=== PATIENT | female | born 1970 | race Hispanic/Latino ===

== ENCOUNTER 2018-02-21 11:41 | Observation (INO) | payer OTHER ==
[2018-02-21] VITALS (15 sets, daily range): BP systolic 128–150; BP diastolic 71–84
[2018-02-21 12:22] LABS: APPEARANCE,URINE Cloudy (CLEAR); BILIRUBIN,URINE Small (NEGATIVE); COLOR,URINE Dark Yellow (YELLOW); GLUCOSE, URINE (UA) Negative (NEGATIVE); KETONES,URINE 15 mg/dL (NEGATIVE); LEUKOCYTE ESTERASE ,URINE Small (NEGATIVE); NITRATE,URINE Negative (NEGATIVE); OCCULT BLOOD,URINE Negative (NEGATIVE); PH,URINE 5.5 (5.0-8.0); PROTEIN,URINE Trace (NEGATIVE)
[2018-02-21 12:23] LABS: CREATININE 0.7 mg/dL (0.5-1.5); POTASSIUM 3.6 mmol/L (3.5-5.1)
[2018-02-21] MEDS ORDERED: ONDANSETRON HCL 4 MG/2 ML VIAL ONE ×2 (12:31→15:19)
[2018-02-21] MEDS ORDERED: SODIUM CHLORIDE 0.9% 1000ML 1,000 ML IV ONE ×2 (12:31→14:41)
[2018-02-21] MEDS ORDERED: MORPHINE SULFATE 4 MG/1ML SYG ONE ×2 (12:32→14:42)
[2018-02-21 12:36] LABS: INR 0.92 (0.85-1.15); PARTIAL THROMBOPLASTIN TIME 23.7 SEC (26.3-35.5); PROTHROMBIN TIME 9.7 SEC (9.6-11.6)
[2018-02-21 12:37] LABS: ALBUMIN 3.4 g/dL (3.5-5.0); BILIRUBIN,TOTAL 0.5 mg/dL (0.2-1.0); CREATINE KINASE MB 1.1 ng/mL (0.5-3.6)
[2018-02-21 12:50] LABS: BACTERIA,URINE Moderate /HPF (None Seen); RBC,URINE 0-1 /HPF (0-1)
[2018-02-21 12:51] LABS: BASOPHILS % (AUTO) 0.5 % (0.0-5.0); EOSINOPHILS % (AUTO) 0.7 % (0.0-8.0); HEMATOCRIT 39.4 % (36-48); LYMPHOCYTES % (AUTO) 9.8 % (21.0-51.0); MEAN CORPUSCULAR HEMOGLOBIN 29.8 pg (27.0-33.0); MEAN CORPUSCULAR HGB CONC 34.2 g/dL (32.0-36.0); MEAN CORPUSCULAR VOLUME 87.1 fL (79-99); PLATELET COUNT (AUTO) 372 K/uL (130-400); RED BLOOD CELL COUNT(AUTO) 4.52 MIL/uL (4.00-5.50); RED CELL DISTRIBUTION WIDTH 13.5 % (11.0-15.5)
[2018-02-21] MEDS ORDERED: ZOSYN 3.375GM+NS 50ML 50 ML IV ONE (14:41)
[2018-02-21] MEDS ORDERED: DEXAMETHASONE SOD PHOSPHATE 10MG/ML 1ML VIAL ONE (15:19)
[2018-02-21] MEDS ORDERED: LIDOCAINE PF 2% 5ML ABBOJECT ONE (15:19)
[2018-02-21] MEDS ORDERED: GLYCOPYRROLATE 0.2 MG/ML 5 ML VIAL ONE (15:19)
[2018-02-21] MEDS ORDERED: NEOSTIGMINE 5MG/5ML SYR IV ONE (15:19)
[2018-02-21] MEDS ORDERED: SUCCINYLCHOLINE 200MG/10ML SYR ONE (15:19)
[2018-02-21] MEDS ORDERED: PROPOFOL 10 MG/ML 20ML VIAL IV ONE (15:20)
[2018-02-21] MEDS ORDERED: MIDAZOLAM HCL 1 MG/ML 2ML VIAL ONE (15:20)
[2018-02-21] MEDS ORDERED: FENTANYL CITRATE PF 50 MCG/1 ML 2ML VIAL ONE ×2 (15:23)
[2018-02-21] MEDS ORDERED: EPINEPHRINE 1 MG/ML AMPULE ONE (15:37)
[2018-02-21] MEDS ORDERED: BUPIVACAINE/PF 0.5% 30ML VIAL ONE (15:37)
[2018-02-21] MEDS ORDERED: EPHEDRINE SULFATE 50 MG/ML AMPULE ONE (15:56)
[2018-02-21] MEDS ORDERED: ESMOLOL HCL 10 MG/ML 10 ML VIAL ONE (16:06)
[2018-02-21] MEDS ORDERED: MEPERIDINE-PF 25 MG/ML SYG ONE ×2 (16:46→16:57)
[2018-02-21] MEDS ORDERED: IPRATROPIUM/ALBUTEROL SULFATE 3 ML SOLUTION IH ONE (17:01)
[2018-02-21] MEDS ORDERED: TRAMADOL HCL 50 MG TABLET ONE (17:36)
== END 2018-02-21 18:19 | disposition home or self-care (01) ==
LOC: EDH 11:41 → UNDOADMOB 11:42 → DAH 11:42 → DAHIP 11:42 → EDHIP 14:30 → DAHIP 14:30 → UNDOADMIN 14:30 → DAH 18:19 → UNDODISOB 18:19
PROVIDERS: ADMIT Surgery; ATTEND Surgery
DX: K35.80 Unspecified acute appendicitis (principal); F41.9 Anxiety disorder, unspecified; F32.9 Major depressive disorder, single episode, unspecified; I10 Essential (primary) hypertension; E11.9 Type 2 diabetes mellitus without complications; J45.909 Unspecified asthma, uncomplicated; Z79.899 Other long term (current) drug therapy
CPT/HCPCS: 36415; 44970; 74176; 76705; 80053; 81001; 81025; 82150; 82550; 82553; 82948; 83605 ×2; 83690; 84484; 85025; 85610; 85730; 87040 ×2; 88304; 93005; 94640; A4344; A4450; A4649 ×5; A4930; G0378 ×4; J0171; J0330; J1100; J2001; J2175 ×2; J2250; J2270 ×2; J2405 ×2; J2543; J2704; J2710; J3010 ×2; J3490 ×4; J7030 ×3

== ENCOUNTER 2018-07-09 06:58 | Observation (INO) | payer OTHER ==
[2018-07-08 17:39] VITALS: BP 143/98
[2018-07-08 17:53] LABS: BILIRUBIN,URINE Negative (NEGATIVE); COLOR,URINE Dark Yellow (YELLOW); GLUCOSE, URINE (UA) Negative (NEGATIVE); KETONES,URINE Trace mg/dL (NEGATIVE); LEUKOCYTE ESTERASE ,URINE Negative (NEGATIVE); NITRATE,URINE Negative (NEGATIVE); OCCULT BLOOD,URINE Negative (NEGATIVE); PROTEIN,URINE POS 1+ (NEGATIVE)
[2018-07-08 17:58] LABS: APPEARANCE,URINE SLIGHTLY CLOUDY (CLEAR)
[2018-07-08 18:03] LABS: BASOPHILS % (AUTO) 1.1 % (0.0-5.0); EOSINOPHILS % (AUTO) 2.4 % (0.0-8.0); HEMATOCRIT 40.3 % (36-48); LYMPHOCYTES % (AUTO) 28.4 % (21.0-51.0); MEAN CORPUSCULAR HGB CONC 34.8 g/dL (32.0-36.0); MEAN CORPUSCULAR VOLUME 89.2 fL (79-99); MONOCYTES % (AUTO) 6.9 % (3.0-13.0); NEUTROPHILS % (AUTO) 61.2 % (40.0-77.0); PLATELET COUNT (AUTO) 380 K/uL (130-400); RED BLOOD CELL COUNT(AUTO) 4.52 MIL/uL (4.00-5.50); RED CELL DISTRIBUTION WIDTH 13.5 % (11.0-15.5); WHITE BLOOD COUNT (AUTO) 13.7 K/uL (4.8-10.8)
[2018-07-08 18:11] LABS: RBC,URINE 0-1 /HPF (0-1); WBC,URINE 0-1 /HPF (0-1)
[2018-07-08 18:12] LABS: BACTERIA,URINE Few /HPF (None Seen)
[2018-07-08 18:13] LABS: MUCUS,URINE Few LPF (None Seen); SQUAMOUS EPITHELIAL CELL,UR Moderate /HPF (0-2)
[2018-07-08 18:16] LABS: INR 0.93 (0.85-1.15); PARTIAL THROMBOPLASTIN TIME 25.3 SEC (26.3-35.5); PROTHROMBIN TIME 9.8 SEC (9.6-11.6)
[~2018-07-09] VITALS: Ht 154.9 cm; Wt 113.3 kg
[2018-07-09] VITALS (21 sets, daily range): BP systolic 105–168; BP diastolic 62–94
[~2018-07-09 06:58] MED LIST: AMLO5TAB7 PO; ASCO500C18 PO; DULO60CA63 PO; FISH1CAP49 PO; FLUT1DIS3 IH; HYDR-4068 PO; HYDR25TA PO; LEVAHFA IH; METF-446 PO; METO-391 PO; MONT10TA21 PO; ROSU5TAB11 PO; SUPER B PO; TIZA4TAB4 PO; TRAZ-185 PO; VITA100T3 PO
[2018-07-09] MEDS ORDERED: SODIUM CHLORIDE 0.9% 1000ML 1,000 ML IV ONE (08:24)
[2018-07-09] MEDS ORDERED: CELECOXIB 200 MG CAP ONE (08:38)
[2018-07-09] MEDS ORDERED: METOCLOPRAMIDE 10 MG/2 ML VIAL ONE (08:39)
[2018-07-09] MEDS ORDERED: ACETAMINOPHEN EXTRA STRENGTH 500 MG TABLET ONE (08:39)
[2018-07-09] MEDS ORDERED: OXYCODONE HCL 10 MG TAB.SR.12H PO ONE (08:40)
[2018-07-09] MEDS ORDERED: KETOROLAC TROMETHAMINE 15MG/ML ONE (08:40)
[2018-07-09] MEDS ORDERED: CEFAZOLIN SODIUM 1 GM VIAL ONE ×2 (09:01→19:12)
[2018-07-09] MEDS ORDERED: BUPIVACAINE/EPI/PF 0.5% 30ML VIAL IJ ONE (09:02)
[2018-07-09] MEDS: CEFAZOLIN SODIUM 1 GM VIAL ONE ×2 (09:22→10:30)
[2018-07-09] MEDS ORDERED: MIDAZOLAM HCL 1 MG/ML 2ML VIAL ONE (09:51)
[2018-07-09] MEDS ORDERED: PROPOFOL 10 MG/ML 20ML VIAL IV ONE (09:51)
[2018-07-09] MEDS ORDERED: FENTANYL CITRATE PF 50 MCG/1 ML 2ML VIAL ONE ×2 (09:51→11:09)
[2018-07-09] MEDS ORDERED: GLYCOPYRROLATE 1 MG/5 ML SYRINGE ONE (09:51)
[2018-07-09] MEDS ORDERED: ONDANSETRON HCL 4 MG/2 ML VIAL ONE (09:51)
[2018-07-09] MEDS ORDERED: LIDOCAINE PF 2% 5ML ABBOJECT ONE (09:51)
[2018-07-09] MEDS ORDERED: DEXAMETHASONE SOD PHOSPHATE 10MG/ML 1ML VIAL ONE (09:51)
[2018-07-09] MEDS ORDERED: NEOSTIGMINE 5MG/5ML SYR IV ONE (09:51)
[2018-07-09] MEDS ORDERED: ROCURONIUM 10MG/1ML SYR 10 MG/ML ML ONE (09:52)
[2018-07-09] MEDS: TRANEXAMIC ACID 1000MG/10ML IV ONE ×2 (10:15→13:05)
[2018-07-09] MEDS ORDERED: HYDROCODONE/ACETAMINOPHEN 10/325 MG TAB PO PRN ×2 (10:15→15:15)
[2018-07-09] MEDS ORDERED: ZOSYN 3.375GM+NS 50ML 50 ML IV ONE (10:58)
[2018-07-09] MEDS: SODIUM CHLORIDE 0.9% 1000ML 1,000 ML IV SCH ×3 (12:21→22:27)
[2018-07-09] MEDS ORDERED: TEMAZEPAM 15 MG CAPSULE PO PRN (12:30)
[2018-07-09] MEDS ORDERED: POTASSIUM CHLORIDE 20MEQ/100ML 100 ML IV PRN (12:30)
[2018-07-09] MEDS ORDERED: CALCIUM CARBONATE 500 MG TABLET PO PRN (12:30)
[2018-07-09] MEDS ORDERED: ONDANSETRON HCL 4 MG/2 ML VIAL IVP PRN (12:30)
[2018-07-09] MEDS ORDERED: DiphenhydrAMINE HCL 50 MG/ML VIAL IVP PRN (12:30)
[2018-07-09] MEDS ORDERED: POTASSIUM CHLORIDE 10% ELIXIR 20 MEQ/15 ML UDCUP PO PRN (12:30)
[2018-07-09] MEDS ORDERED: OXYCODONE HCL 5 MG TAB PO PRN (12:30)
[2018-07-09] MEDS ORDERED: LIDOCAINE HCL-MPF 1% 2ML VIAL IVP PRN (12:30)
[2018-07-09] MEDS: ACETAMINOPHEN EXTRA STRENGTH 500 MG TABLET PO SCH ×2 (12:30→20:24)
[2018-07-09] MEDS ORDERED: FERROUS FUMARATE 324 MG TABLET PO PRN (12:30)
[2018-07-09] MEDS ORDERED: TRAMADOL HCL 50 MG TABLET PO PRN (12:30)
[2018-07-09] MEDS ORDERED: MORPHINE SULFATE 4 MG/1ML SYG ONE (13:07)
[2018-07-09] MEDS ORDERED: MEPERIDINE-PF 25 MG/ML SYG ONE (13:22)
[2018-07-09] MEDS ORDERED: LEVALBUTEROL TARTRATE IH PRN (15:15)
[2018-07-09] MEDS ORDERED: AMOX500T2 PO (15:20)
[2018-07-09] MEDS: INSULIN HUMULIN R 100 UNIT/ML 3ML SQ SCH ×2 (16:30→20:40)
[2018-07-09] MEDS ORDERED: FISH OIL 1000 MG/CAP PO SCH (17:00)
[2018-07-09] MEDS: METFORMIN HCL 500 MG TABLET PO SCH (17:15)
[2018-07-09] MEDS ORDERED: PHARMACY COMMUNICATION MISC SCH (17:15)
[2018-07-09] MEDS: CEFAZOLIN 3GM /D5W 100ML 100 ML IV SCH (17:30)
[2018-07-09] MEDS: KETOROLAC TROMETHAMINE 15MG/ML IV PRN (18:34)
[2018-07-09] MEDS: AMOXICILLIN 500 MG CAPSULE PO SCH (20:22)
[2018-07-09] MEDS: ASPIRIN 325 MG TABLET PO SCH (20:23)
[2018-07-09] MEDS: PREGABALIN 25 MG CAP PO SCH (20:23)
[2018-07-09] MEDS: CELECOXIB 200 MG CAP PO SCH (20:23)
[2018-07-09] MEDS: METOPROLOL TARTRATE 25 MG TAB PO SCH (20:23)
[2018-07-09] MEDS: FAMOTIDINE 20MG TAB 20 MG TAB PO SCH (20:23)
[2018-07-09] MEDS ORDERED: TRAZODONE HCL 50 MG TAB PO SCH (21:00)
[2018-07-09] MEDS ORDERED: AMOXICILLIN 500 MG PO SCH (21:00)
[2018-07-09] MEDS ORDERED: NON-FORMULARY MEDICATION 1 EACH (Tizanidine HCl 4 MG) PO SCH (21:00)
[2018-07-09] MEDS ORDERED: TRAZODONE HCL 50 MG PO SCH (21:00)
[2018-07-09] MEDS ORDERED: NON-FORMULARY MEDICATION 1 EACH (Metformin HCl 1,000 MG) PO SCH (21:00)
[2018-07-09] MEDS ORDERED: TIZANIDINE HCL 2 MG TABLET PO SCH (21:00)
[2018-07-09] MEDS: OXYCODONE HCL 5 MG TAB PO PRN (21:31)
[2018-07-10] MEDS: CEFAZOLIN 3GM /D5W 100ML 100 ML IV SCH (03:13)
[2018-07-10] MEDS: ACETAMINOPHEN EXTRA STRENGTH 500 MG TABLET PO SCH ×2 (03:14→12:21)
[2018-07-10 04:05] LABS: HEMATOCRIT 31.8 % (36-48); MEAN CORPUSCULAR HEMOGLOBIN 30.4 pg (27.0-33.0); MEAN CORPUSCULAR HGB CONC 33.3 g/dL (32.0-36.0); MEAN CORPUSCULAR VOLUME 91.2 fL (79-99); PLATELET COUNT (AUTO) 311 K/uL (130-400); RED BLOOD CELL COUNT(AUTO) 3.49 MIL/uL (4.00-5.50); RED CELL DISTRIBUTION WIDTH 13.6 % (11.0-15.5); WHITE BLOOD COUNT (AUTO) 13.8 K/uL (4.8-10.8)
[2018-07-10 04:21] LABS: POTASSIUM 3.3 mmol/L (3.5-5.1)
[2018-07-10 04:31] VITALS: BP 98/54
[2018-07-10] MEDS: INSULIN HUMULIN R 100 UNIT/ML 3ML SQ SCH ×3 (05:55→16:49)
[2018-07-10] MEDS: POTASSIUM CHLORIDE 20 MEQ ERTAB PO PRN ×2 (06:24→15:34)
[2018-07-10 07:36] VITALS: BP 103/57
[2018-07-10] MEDS: METFORMIN HCL 500 MG TABLET PO SCH ×2 (07:52→16:48)
[2018-07-10] MEDS: AMOXICILLIN 500 MG CAPSULE PO SCH (08:01)
[2018-07-10] MEDS: CELECOXIB 200 MG CAP PO SCH (08:01)
[2018-07-10] MEDS: ASPIRIN 325 MG TABLET PO SCH (08:01)
[2018-07-10] MEDS: METOPROLOL TARTRATE 25 MG TAB PO SCH (08:02)
[2018-07-10] MEDS: FAMOTIDINE 20MG TAB 20 MG TAB PO SCH (08:02)
[2018-07-10] MEDS: PREGABALIN 25 MG CAP PO SCH (08:03)
[2018-07-10] MEDS: KETOROLAC TROMETHAMINE 15MG/ML IV PRN ×2 (08:07→16:50)
[2018-07-10] MEDS ORDERED: HYDROCHLOROTHIAZIDE 25 MG TABLET PO SCH ×2 (09:00)
[2018-07-10] MEDS ORDERED: POLYETHYLENE GLYCOL 3350 17 GM POWD.PACK PO SCH (09:00)
[2018-07-10] MEDS ORDERED: Rosuvastatin Calcium 5 MG PO SCH (09:00)
[2018-07-10] MEDS ORDERED: NON-FORMULARY MEDICATION 1 EACH (Ascorbic Acid (Vitamin C) 500 MG) PO SCH (09:00)
[2018-07-10] MEDS ORDERED: DULOXETINE HCL 30 MG CAP PO SCH (09:00)
[2018-07-10] MEDS ORDERED: Metoprolol Succinate 50 MG PO SCH (09:00)
[2018-07-10] MEDS ORDERED: ASCORBIC ACID 500 MG TAB PO SCH (09:00)
[2018-07-10] MEDS ORDERED: VITAMIN E 400 UNIT CAPSULE PO SCH (09:00)
[2018-07-10] MEDS ORDERED: AMLODIPINE BESYLATE 5 MG TAB PO SCH (09:00)
[2018-07-10] MEDS ORDERED: ATORVASTATIN CALCIUM 10 MG TABLET PO SCH (09:00)
[2018-07-10] MEDS ORDERED: VITAMIN B COMPLEX 1 CAPSULE PO SCH (09:00)
[2018-07-10] MEDS ORDERED: SUPER B PO SCH (09:00)
[2018-07-10] MEDS ORDERED: MONTELUKAST SODIUM 10 MG TAB PO SCH ×2 (09:00)
[2018-07-10] MEDS ORDERED: NON-FORMULARY MEDICATION 1 EACH (Duloxetine HCl 60 MG) PO SCH (09:00)
[2018-07-10] MEDS: OXYCODONE HCL 5 MG TAB PO PRN (10:19)
[2018-07-10 11:31] VITALS: BP 120/76
[2018-07-10 15:53] VITALS: BP 141/71
[2018-07-10] MEDS ORDERED: ASPI-1012 PO (18:05)
[2018-07-10] MEDS ORDERED: HYDR-4457 PO (18:05)
[2018-07-12] MEDS ORDERED: BISACODYL 10 MG SUPP.RECT RC PRN (12:30)
== END 2018-07-10 19:20 | disposition home health service (06) ==
LOC: DAH 06:58 → 4AH 06:59 → DAH 06:59
PROVIDERS: ADMIT Orthopaedic Surgery; ATTEND Orthopaedic Surgery
DX: M17.12 Unilateral primary osteoarthritis, left knee (principal); E66.01 Morbid (severe) obesity due to excess calories; I10 Essential (primary) hypertension; E11.9 Type 2 diabetes mellitus without complications; M06.9 Rheumatoid arthritis, unspecified; Z98.51 Tubal ligation status; Z83.3 Family history of diabetes mellitus; Z82.49 Family history of ischemic heart disease and other diseases of the circulatory system; Z79.899 Other long term (current) drug therapy
CPT/HCPCS: 27447; 36415 ×2; 80048; 81001; 82948 ×6; 85025; 85027; 85610; 85730; 88305; 88311; 96365; 96372 ×2; 96375; 96376; 97116 ×3; 97161; 97530 ×2; A4215; A4218; A4649 ×5; A4930 ×3; A9272; C1763; C1776; G0378 ×36; G8978; G8979; G8980; G8981; G8982; G8983; J0690 ×4; J1100; J1815 ×3; J1885 ×4; J2001; J2175; J2250; J2270; J2405; J2543; J2704; J2710; J2765; J3010 ×2; J3490 ×3; J7030 ×2

== ENCOUNTER 2018-07-15 20:07 | Emergency (ER) | payer OTHER ==
[~2018-07-15 20:07] MED LIST changes: +AMOX500T2 PO; +ASPI-1012 PO; -HYDR-4068 PO; +HYDR-4457 PO
[2018-07-15] MEDS ORDERED: FENTANYL CITRATE PF 50 MCG/1 ML 2ML VIAL ONE (20:21)
[2018-07-15] MEDS ORDERED: ENOXAPARIN SODIUM 100 MG/1 ML SQ ONE (20:21)
[2018-07-15 20:45] LABS: BASOPHILS % (AUTO) 1.1 % (0.0-5.0); EOSINOPHILS % (AUTO) 2.3 % (0.0-8.0); HEMATOCRIT 34.4 % (36-48); LYMPHOCYTES % (AUTO) 16.8 % (21.0-51.0); MEAN CORPUSCULAR HEMOGLOBIN 29.7 pg (27.0-33.0); MEAN CORPUSCULAR HGB CONC 33.2 g/dL (32.0-36.0); MEAN CORPUSCULAR VOLUME 89.4 fL (79-99); MONOCYTES % (AUTO) 7.1 % (3.0-13.0); NEUTROPHILS % (AUTO) 72.7 % (40.0-77.0); NUCLEATED RED BLOOD CELLS 0.1 % (0.0-0.19); PLATELET COUNT (AUTO) 440 K/uL (130-400); RED BLOOD CELL COUNT(AUTO) 3.85 MIL/uL (4.00-5.50); RED CELL DISTRIBUTION WIDTH 13.7 % (11.0-15.5); WHITE BLOOD COUNT (AUTO) 16.6 K/uL (4.8-10.8)
[2018-07-15 20:54] LABS: CREATININE 0.7 mg/dL (0.5-1.5); POTASSIUM 3.3 mmol/L (3.5-5.1)
[2018-07-15 20:58] LABS: INR 0.89 (0.85-1.15); PARTIAL THROMBOPLASTIN TIME 28.7 SEC (26.3-35.5); PROTHROMBIN TIME 9.4 SEC (9.6-11.6)
== END 2018-07-15 22:51 | disposition home or self-care (01) ==
LOC: EDH 20:07
DX: G89.18 Other acute postprocedural pain (principal); M25.562 Pain in left knee; M79.89 Other specified soft tissue disorders; F41.9 Anxiety disorder, unspecified; F32.9 Major depressive disorder, single episode, unspecified; E11.9 Type 2 diabetes mellitus without complications; E78.5 Hyperlipidemia, unspecified; I10 Essential (primary) hypertension; Z96.652 Presence of left artificial knee joint; Z90.710 Acquired absence of both cervix and uterus; Z98.51 Tubal ligation status; Z72.0 Tobacco use
CPT/HCPCS: 36415; 80048; 85025; 85610; 85730; 93005; 93971; 96372; 96374; 99285; J1650; J3010

== ENCOUNTER 2020-01-18 05:23 | Day surgery (SDC) | payer OTHER ==
[2020-01-14 09:38] VITALS: BP 142/81
[2020-01-14 11:14] LABS: BASOPHILS % (AUTO) 0.9 % (0.0-5.0); EOSINOPHILS % (AUTO) 2.1 % (0.0-8.0); HEMATOCRIT 43.3 % (36-48); LYMPHOCYTES % (AUTO) 18.3 % (21.0-51.0); MEAN CORPUSCULAR HEMOGLOBIN 29.6 pg (27.0-33.0); MEAN CORPUSCULAR HGB CONC 32.8 g/dL (32.0-36.0); MEAN CORPUSCULAR VOLUME 90.4 fL (79-99); MONOCYTES % (AUTO) 5.8 % (3.0-13.0); NEUTROPHILS % (AUTO) 71.9 % (40.0-77.0); PLATELET COUNT (AUTO) 405 K/uL (130-400); RED BLOOD CELL COUNT(AUTO) 4.79 MIL/uL (4.00-5.50); RED CELL DISTRIBUTION WIDTH 13.2 % (11.0-15.5); WHITE BLOOD COUNT (AUTO) 16.1 K/uL (4.8-10.8)
[2020-01-14 11:17] LABS: CREATININE 0.7 mg/dL (0.5-1.5); POTASSIUM 3.8 mmol/L (3.5-5.1)
--- NOTE | 2020-01-15 11:20 | NUR ---
re: abnormal labs INFORMED DR ROBLEDO REGARDING WBC 16.1, NO NEW ORDERS. OK TO PROCEED WITH SURGERY.
[~2020-01-18] VITALS: Ht 152.4 cm; Wt 110.0 kg
[2020-01-18] VITALS (22 sets, daily range): BP systolic 103–144; BP diastolic 59–81
[2020-01-18] MEDS: CEFAZOLIN SODIUM 1 GM VIAL IVP SCH ×2 (05:00→08:05)
[~2020-01-18 05:23] MED LIST changes: +ACET-66 PO; +AMLO10TA7 PO; -AMLO5TAB7 PO; -AMOX500T2 PO; -ASPI-1012 PO; +CYAN1TAB44 PO; -DULO60CA63 PO; +ERGO500014 PO; +ESCI10TA PO; -FLUT1DIS3 IH; +FURO-152 PO; +GABA-529 PO; +HYDR-4060 PO; -HYDR-4457 PO; -LEVAHFA IH; +LISI2.5T2 PO; -MONT10TA21 PO; +MONT4TAB8 PO; +ROSU5TAB PO; -ROSU5TAB11 PO; -SUPER B PO; -TIZA4TAB4 PO; +TIZA4TAB5 PO; -VITA100T3 PO
[2020-01-18] MEDS ORDERED: SODIUM CHLORIDE 0.9% 1000ML 1,000 ML IV ONE (06:01)
--- NOTE | 2020-01-18 06:59 | NUR ---
POTENTIAL FOR INFECTION: NO CLIPPING NEEDED TO LEFT LEG / LEFT KNEE ASSESSED PER KADEEM FOLEY. WIPED LEFT KNEE / LEFT LEG WITH NIELS: 2% CHLORHEXIDINE GLUCONATE CLOTH PATIENTS PRE-OP SKIN PREP PER KADEEM FOLEY.
[2020-01-18] MEDS ORDERED: LIDOCAINE PF 2% 5ML ABBOJECT ONE (07:37)
[2020-01-18] MEDS ORDERED: MIDAZOLAM HCL 1 MG/ML 2ML VIAL ONE (07:38)
[2020-01-18] MEDS ORDERED: PROPOFOL 10 MG/ML 20ML VIAL IV ONE (07:38)
[2020-01-18] MEDS ORDERED: FENTANYL CITRATE PF 50 MCG/1 ML 2ML VIAL ONE (07:38)
[2020-01-18] MEDS ORDERED: ROCURONIUM 10MG/1ML SYR 10 MG/ML ML ONE (07:38)
[2020-01-18] MEDS ORDERED: SUCCINYLCHOLINE CHLORIDE 20 MG/ML 10 ML VIAL ONE (07:40)
[2020-01-18] MEDS ORDERED: ALBUTEROL INHALER 90MCG/INH IH ONE (07:51)
[2020-01-18] MEDS ORDERED: ALBUTEROL INHALER 90MCG/INH IH SCH (08:00)
[2020-01-18] MEDS ORDERED: DEXAMETHASONE SOD PHOSPHATE 4 MG/ML 1ML VIAL ONE (08:14)
[2020-01-18] MEDS ORDERED: ONDANSETRON HCL 4 MG/2 ML VIAL ONE (08:20)
[2020-01-18] MEDS ORDERED: NEOSTIGMINE 5MG/5ML SYR IV ONE (08:34)
[2020-01-18] MEDS ORDERED: GLYCOPYRROLATE 1 MG/5 ML SYRINGE ONE (08:34)
[2020-01-18] MEDS ORDERED: MEPERIDINE-PF 25 MG/ML SYG ONE (09:45)
[2020-01-18] MEDS ORDERED: CEPH-578 PO (09:54)
[2020-01-18] MEDS ORDERED: MELO-106 PO (09:54)
[2020-01-18 11:10] LABS: APPEARANCE BODY FLUID CLOUDY (CLEAR); COLOR,BODY FLUID DARK YELLOW (LT YELLOW); SPECIMENTYPE,BODY FLUID SYNOVIAL; TOTAL VOLUME,BODY FLUID 10 mL
[2020-01-18 11:11] LABS: BODY FLUID RBC 4900 /cu. mm.; BODY FLUID WBC 132 /cu. mm.
[2020-01-18 11:19] LABS: BF LYMPHOCYTE 48 %; BF MESOTHELIAL 37 %; BF MONOCYTE 12 %
--- NOTE | 2020-01-18 11:25 | NUR ---
post received pt back from [facility], s/p left knee arthroscopy . dressing to site dry and intact, neurovascular checks wnl to ble. pt awake and alert , denies any pain or discomforts. vs stable on arrival.
--- NOTE | 2020-01-18 11:50 | NUR ---
dc dc intructions given to pts spouse over the phone, instructed that medications prescribed ready for package pick up at pts pharmacy of choice. [facility]. instructed on all dr. contreras dc orders in detailed , pt spouse verbalized understanding. pt states has walker at home prefers to ambulate with walker and not with crutches. dressing to left knee dry and intact.
--- NOTE | 2020-01-18 11:55 | NUR ---
dc pt dc home via w[facility], no distress noted. pt denied any pain or discomforts. pt accompanied by spouse.
[2020-01-18 18:15] LABS: CRYSTALS, SYNOVIAL FLUID SEE SEPARATE REPORT
== END 2020-01-18 11:55 | disposition home or self-care (01) ==
LOC: DAH 05:23
PROVIDERS: ATTEND Orthopaedic Surgery
DX: M65.88 Other synovitis and tenosynovitis, other site (principal); I10 Essential (primary) hypertension; E11.9 Type 2 diabetes mellitus without complications; M19.90 Unspecified osteoarthritis, unspecified site; M06.9 Rheumatoid arthritis, unspecified; J45.909 Unspecified asthma, uncomplicated; E78.5 Hyperlipidemia, unspecified; E66.01 Morbid (severe) obesity due to excess calories; E11.51 Type 2 diabetes mellitus with diabetic peripheral angiopathy without gangrene; G89.29 Other chronic pain; Z98.890 Other specified postprocedural states; M25.562 Pain in left knee; Z90.710 Acquired absence of both cervix and uterus; Z98.51 Tubal ligation status; Z96.652 Presence of left artificial knee joint; Z90.49 Acquired absence of other specified parts of digestive tract; Z79.899 Other long term (current) drug therapy; Z83.3 Family history of diabetes mellitus; Z82.49 Family history of ischemic heart disease and other diseases of the circulatory system; Z80.9 Family history of malignant neoplasm, unspecified
CPT/HCPCS: 29876; 36415; 80048; 82948 ×2; 85025; 87070; 87076; 87205; 89051; 89060; A4213; A4215; A4221; A4222; A4223; A4606; A4649 ×3; A4663; A4930; A5120; A6223; J0330; J0690; J1100; J2001; J2175; J2250; J2405; J2704; J2710; J3010; J3490; J7030 ×3

== ENCOUNTER 2020-01-27 05:40 | Day surgery (SDC) | payer OTHER ==
[2020-01-26 18:10] VITALS: BP 118/73
[2020-01-26 18:11] LABS: BASOPHILS % (AUTO) 0.9 % (0.0-5.0); EOSINOPHILS % (AUTO) 3.2 % (0.0-8.0); MEAN CORPUSCULAR HEMOGLOBIN 29.7 pg (27.0-33.0); MEAN CORPUSCULAR HGB CONC 32.5 g/dL (32.0-36.0); MEAN CORPUSCULAR VOLUME 91.5 fL (79-99); MONOCYTES % (AUTO) 5.6 % (3.0-13.0); NEUTROPHILS % (AUTO) 70.5 % (40.0-77.0); PLATELET COUNT (AUTO) 438 K/uL (130-400); RED BLOOD CELL COUNT(AUTO) 4.37 MIL/uL (4.00-5.50); RED CELL DISTRIBUTION WIDTH 13.4 % (11.0-15.5); WHITE BLOOD COUNT (AUTO) 15.8 K/uL (4.8-10.8)
[2020-01-26 18:23] LABS: CREATININE 0.7 mg/dL (0.5-1.5); POTASSIUM 3.9 mmol/L (3.5-5.1)
--- NOTE | 2020-01-26 19:10 | NUR ---
report called dr contreras and reported elevated wbc of 15.8 and temp of 97. received new orders to add manual differential to cbc. called lab and informed them of new orders they will add to cbc.
[2020-01-26 20:01] LABS: BAND NEUTROPHILS % (MANUAL) 3 % (0-2); EOSINOPHILS % (MANUAL) 2 % (1-6); LYMPHOCYTES % (MANUAL) 21 % (22-44); MONOCYTES % (MANUAL) 5 % (2-9); SEGMENTED NEUTROPHILS % 69 % (40-70)
[2020-01-26 20:02] LABS: MAN.DIFF COMMENT-IMPRESSION MANUAL DIFFERENTIAL; PLATELET MORPHOLOGY COMMENT SLIGHT INCREASED
[~2020-01-27] VITALS: Ht 152.4 cm; Wt 108.9 kg
[2020-01-27] VITALS (17 sets, daily range): BP systolic 109–150; BP diastolic 61–78
[~2020-01-27 05:40] MED LIST changes: +MELO-106 PO
[2020-01-27] MEDS ORDERED: SODIUM CHLORIDE 0.9% 1000ML 1,000 ML IV ONE (06:17)
[2020-01-27] MEDS: CEFAZOLIN SODIUM 1 GM VIAL ONE ×2 (06:27→09:00)
--- NOTE | 2020-01-27 06:50 | NUR ---
POTENTIAL FOR INFECTION: CLIPPED LEFT KNEE / LEFT LEG PER KADEEM FOLEY, FOLLOWED BY WIPING WITH NIELS: 2% CHLORHEXIDINE GLUCONATE CLOTH PATIENTS PRE-OP SKIN PREP.
[2020-01-27] MEDS ORDERED: LIDOCAINE PF 2% 5ML ABBOJECT ONE (07:41)
[2020-01-27] MEDS ORDERED: SUCCINYLCHOLINE CHLORIDE 20 MG/ML 10 ML VIAL ONE (07:41)
[2020-01-27] MEDS ORDERED: PROPOFOL 10 MG/ML 20ML VIAL IV ONE (07:41)
[2020-01-27] MEDS ORDERED: MIDAZOLAM HCL 1 MG/ML 2ML VIAL ONE ×2 (07:41→07:51)
[2020-01-27] MEDS ORDERED: FENTANYL CITRATE PF 50 MCG/1 ML 2ML VIAL ONE ×3 (07:43→08:49)
[2020-01-27] MEDS ORDERED: ROCURONIUM 10MG/1ML SYR 10 MG/ML ML ONE (07:55)
[2020-01-27] MEDS ORDERED: EPHEDRINE SULFATE 50 MG/ML AMPULE ONE (08:26)
[2020-01-27] MEDS ORDERED: CEFAZOLIN SODIUM 1 GM VIAL ONE (08:50)
[2020-01-27] MEDS ORDERED: VANCOMYCIN HCL 1 GM VIAL ONE (08:50)
[2020-01-27] MEDS ORDERED: GENTAMICIN SULFATE 80 MG/2 ML VIAL ONE (09:08)
[2020-01-27] MEDS ORDERED: GLYCOPYRROLATE 1 MG/5 ML SYRINGE ONE (09:21)
[2020-01-27] MEDS ORDERED: NEOSTIGMINE 5MG/5ML SYR IV ONE (09:27)
[2020-01-27] MEDS ORDERED: SULF1TAB42 PO (10:16)
--- NOTE | 2020-01-27 10:50 | NUR ---
post op received pt post op. pt in no distress. call light with in reach, oriented to room and connected to monitor. will continue to monitor pt
--- NOTE | 2020-01-27 11:15 | NUR ---
report report given to suri santana rn
--- NOTE | 2020-01-27 11:30 | NUR ---
INSTRUCTIONS INSTRUCTIONS GIVEN TO PTS SON-IN-LAW ALONG WITH ICE PACK. NO OTHER QUESTIONS AT THIS TIME. 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 PT DISCHARGED. DRSG TO KNEE DRY AND INTACT
== END 2020-01-27 11:38 | disposition home or self-care (01) ==
LOC: DAH 05:40
PROVIDERS: ATTEND Orthopaedic Surgery
DX: T81.30XA Disruption of wound, unspecified, initial encounter (principal); Y83.8 Other surgical procedures as the cause of abnormal reaction of the patient, or of later complication, without mention of misadventure at the time of the procedure; I10 Essential (primary) hypertension; M06.9 Rheumatoid arthritis, unspecified; E11.9 Type 2 diabetes mellitus without complications; J45.909 Unspecified asthma, uncomplicated; E66.9 Obesity, unspecified; F17.210 Nicotine dependence, cigarettes, uncomplicated; Z90.710 Acquired absence of both cervix and uterus; Z98.890 Other specified postprocedural states; Z79.899 Other long term (current) drug therapy; Z90.49 Acquired absence of other specified parts of digestive tract; Z96.652 Presence of left artificial knee joint; Z98.51 Tubal ligation status; Z72.89 Other problems related to lifestyle; Z68.42 Body mass index [BMI] 45.0-49.9, adult; Z83.3 Family history of diabetes mellitus; Z82.49 Family history of ischemic heart disease and other diseases of the circulatory system
CPT/HCPCS: 11043; 36415; 80048; 82948 ×2; 85025; 87070; 87076; 87205; A4213; A4215; A4221; A4222; A4223; A4649; A4663; A4930; A5120; A6223; J0330; J0690 ×2; J1580; J2001; J2250; J2704; J2710; J3010 ×2; J3370; J3490 ×2; J7030

== ENCOUNTER → 2020-07-15 | Outpatient (CLI) | payer OTHER ==
[~2020-07-15] MED LIST changes: +AMLO-258 PO; -AMLO10TA7 PO; +SULF1TAB42 PO
== END | disposition home or self-care (01) ==
LOC: RAH 08:49
PROVIDERS: ATTEND Family Medicine
DX: E04.1 Nontoxic single thyroid nodule (principal); E07.9 Disorder of thyroid, unspecified; E07.89 Other specified disorders of thyroid
CPT/HCPCS: 76536

== ENCOUNTER → 2021-02-24 | Outpatient (CLI) | payer OTHER ==
[~2021-02-24] MED LIST changes: -ERGO500014 PO; +ERGO500093 PO
== END | disposition home or self-care (01) ==
LOC: RAH 14:09
PROVIDERS: ATTEND Family Medicine
DX: I87.2 Venous insufficiency (chronic) (peripheral) (principal); E11.42 Type 2 diabetes mellitus with diabetic polyneuropathy; M79.604 Pain in right leg; M79.661 Pain in right lower leg; I70.292 Other atherosclerosis of native arteries of extremities, left leg
CPT/HCPCS: 93925; 93970

== ENCOUNTER → 2024-01-14 | Outpatient (CLI) | payer OTHER ==
[~2024-01-14] MED LIST changes: +LISI2.5T13 PO; -LISI2.5T2 PO; +MONT4TAB PO; -MONT4TAB8 PO; +TIZA-211 PO; -TIZA4TAB5 PO
== END | disposition home or self-care (01) ==
LOC: RAH 08:49
PROVIDERS: ATTEND Family Medicine
DX: Z13.820 Encounter for screening for osteoporosis (principal); N95.9 Unspecified menopausal and perimenopausal disorder
CPT/HCPCS: 77080